=== PATIENT | male | born 1960 | race Caucasian/White ===

== ENCOUNTER 2019-06-12 07:43 | Day surgery (SDC) | payer OTHER, SELFPAY ==
--- NOTE | 2019-06-12 | PATH_ITS ---
[facility] Accession Number: [id number] . 01 Material submitted: . PART A: colon - RIGHT COLON BIOPSY PART B: colon - TRANSVERSE COLON BIOPSY PART C: colon - LEFT COLON BIOPSY . 02 Diagnosis: A. Biopsies, Right Colon: Changes of chronic active colitis with focal crypt abscess and focal ulceration. Negative for atypia and malignancy. . B. Transverse Colon, Biopsies: Fragments of normal appearing colon mucosa. Negative for significant architectural distortion. Negative for significant inflammation, dysplasia, and malignancy. . C. Left Colon Biopsies: Fragments of normal appearing colon mucosa with focal areas of recent intramucosal hemorrhage, nonspecific. Negative for significant architectural distortion. Negative for significant inflammation, dysplasia, and malignancy. [facility]/06/13/2019 . 02 Electronically signed: . Lester Jefferson MD, Pathologist NPI- [id number] . 01 Gross description: . Part A: RIGHT COLON BIOPSY: Received in formalin are multiple fragment(s) of dubon, soft tissue measuring 0.2 x 0.2 x 0.1 cm to 0.4 x 0.4 x 0.2 cm which is entirely submitted and submitted entirely in 1 cassette(s) Part B: TRANSVERSE COLON BIOPSY: Received in formalin are multiple fragment(s) of dubon, soft tissue measuring 0.1 x 0.1 x 0.1 cm to 0.4 x 0.2 x 0.2 cm which is entirely submitted and submitted entirely in 1 cassette(s) Part C: LEFT COLON BIOPSY: Received in formalin are multiple fragment(s) of dubon, soft tissue measuring 0.1 x 0.1 x 0.1 cm to 0.4 x 0.2 x 0.2 cm which is entirely submitted and submitted entirely in 1 cassette(s) /[facility] /[facility] . 02 Pathologist provided ICD-10: K51.919 . 02 CPT . 925313, 084365, 329438 Performed at: 01 [facility] [address] [id number] MD Napoleon Storm MD Phone: [phone] Performed at: 02 [facility] [address] [place], [place] [id number] MD Betina San MD Phone: [phone]
[2019-06-12 07:59] VITALS: BP 118/79; PULSE 62; RESP 15; TEMP 36.5; O2SAT 100; BMI 26.6
[2019-06-12] MEDS: SODIUM CHLORIDE 0.9% 1,000 ML 21 ML IV (08:14)
--- NOTE | 2019-06-12 09:12 | PM.HP.1 ---
History of Present Illness Date Patient Seen: 06/12/19 Time Patient Seen: 09:12 Chief complaint: [id number] Narrative: History of ulcerative colitis, history of colon polyps, and family history of colon cancer including daughter at age 27 Patient History Medical History (Updated 06/12/19 @ 09:14 by Eboni Berry MD) Hypercholesterolemia (Acute) Ulcerative colitis (Acute) Social History household members: spouse Family & Social History Social History: household members spouse Meds Home Medications Medication Instructions Recorded Confirmed Type atorvastatin 20 mg PO QPM 06/12/19 06/12/19 History Allergies Allergy/AdvReac Type Severity Reaction Status Date / Time No Known Drug Allergies Allergy Verified 06/12/19 07:54 Exam Vital Signs (past 8 hours): - 06/12/19 07:59 Temperature 97.7 F Pulse Rate 62 Respiratory Rate 15 Blood Pressure 118/79 Pulse Oximetry 100 Oxygen Delivery Method Room Air Narrative Exam Narrative: Oropharynx free of lesions Chest clear to auscultation percussion Cardiac exam reveals no S3 or murmur Assessment & Plan Assessment & Plan narrative: Personal history of colon polyps and ulcerative colitis with a very strong family history of colon cancer including grandfather, mother at age 60, and daughter at age 27. Caal syndrome genetic testing negative on daughter. Need for follow-up colonoscopy Risks, benefits, alternatives have been explained. Further recommendations will follow the results this study but follow-up colonoscopy may be suggested at a 2 year interval for both testing negative Caal syndrome and personal history of inflammatory bowel disease
--- NOTE | 2019-06-12 09:15 | PM.OP.ENDO ---
Operative Date/Time/Diagnoses Date of procedure: 06/12/19 Time of procedure: 09:16 Pre-op diagnosis: See indication Procedure & Clinicians Study performed: Colonoscopy Same procedure as scheduled: Yes Indications: Personal history of colon polyps and inflammatory bowel disease with very strong family history of colon cancer. Caal syndrome testing negative Surgeon: Eboni Berry Procedure Notes Procedure in detail: After informed consent was obtained the patient was placed in left lateral decubitus position. The video colonoscope was introduced the rectum slowly advanced to the cecum. On slow withdrawal mucosa was carefully examined. The scope was removed. The patient tolerated the procedure well. Blood loss none Complications none Sedation Total sedation time 21 minutes Versed 3 mg fentanyl 100 micro g IV titration Findings 1. [id number] patchy colitis from the cecum to the proximal transverse colon at the hepatic flexure. This had aphthous ulcerations and pseudopolyps consistent with Crohn's colitis. 2. Surveillance biopsies for inflammatory bowel disease taken to biopsies every 10 cm with Jumbo biopsy forceps. These were placed in right colon, transverse colon, and left colon. No other polyps were seen other than the few very small pseudo polyps We will await biopsy results. Will also discuss any symptoms. He will need follow-up colonoscopy most likely in 2 years.
[2019-06-12] MEDS: fentaNYL 250 MCG/5 ML INJ IV (09:18)
[2019-06-12] MEDS: MIDAZOLAM 5 MG/5 ML VIAL IV (09:19)
[2019-06-12 09:46] VITALS: BP 118/82; PULSE 65; RESP 10; TEMP 36.3; O2SAT 94
[2019-06-12 09:51] VITALS: BP 113/79; PULSE 64; RESP 8; O2SAT 92
[2019-06-12 09:56] VITALS: BP 127/89; PULSE 66; RESP 10; O2SAT 95
[2019-06-12 10:30] VITALS: BP 120/86; PULSE 64; RESP 17; TEMP 36.6; O2SAT 97
== END 2019-06-12 10:41 | disposition home or self-care (01) ==
PROVIDERS: Family Provider Family Medicine; PCP Family Medicine; Visit Provider Internal Medicine Gastroenterology
PROC: 0DJD8ZZ Inspection of Lower Intestinal Tract, Via Natural or Artificial Opening Endoscopic (ICD-10-PCS; CPT 45378; principal; 2019-06-12 09:00)
DX: Z86.010 Personal history of colon polyps (principal); Z80.0 Family history of malignant neoplasm of digestive organs; K51.919 Ulcerative colitis, unspecified with unspecified complications
CPT/HCPCS: 45380; J2250; J3010

== ENCOUNTER → 2025-04-30 16:53 | Outpatient (CLI) | payer OTHER, SELFPAY ==
--- NOTE | 2025-04-30 16:57 | DI.RAD.S_ITS ---
PROCEDURE: XR SHOULDER RT MIN 2V INDICATIONS: ROUTINE TECHNIQUE: 2 views of the shoulder were acquired. COMPARISON: None. FINDINGS: Bones: No fractures or dislocations. No suspicious bony lesions. Visualized ribs appear intact. Acromioclavicular joint space narrowing with osteophytosis. Soft tissues: No suspicious soft tissue calcifications. IMPRESSION: Moderate acromioclavicular osteoarthritis. Dictated by: Jacques Lutz M.D. on 05/01/2025 at 10:27 Approved by: Jacques Lutz M.D. on 05/01/2025 at 10:31
== END ==
PROVIDERS: Family Provider Family Medicine; PCP Family Medicine; Referring Provider Family Medicine; Visit Provider Family Medicine
DX: M19.011 Primary osteoarthritis, right shoulder (principal); M25.511 Pain in right shoulder; G89.29 Other chronic pain
CPT/HCPCS: 73030